=== PATIENT | male | born 1970 ===

== ENCOUNTER 2017-01-13 07:01 | Emergency (ER) | payer SELFPAY ==
[2017-01-13 07:24] VITALS: TEMP 98.8
--- NOTE | 2017-01-13 07:35 | ED PDOC ---
HPI: Chest Pain Time Seen by Provider: 01/13/17 07:05 Chief Complaint (Nursing): Chest Pain History Per: Patient History/Exam Limitations: no limitations Onset/Duration Of Symptoms: Hrs Current Symptoms Are (Timing): Still Present Severity: Moderate Additional Complaint(s): 46-year-old male, denies significant PMHx, presents to the emergency department with complaints of chest pain. Patient states he has been experiencing generalized chest pain since 04:30 this morning. Pain is non-radiating, worse with deep inspiration and associated with shortness of breath. He notes a similar episode recently, that resolved spontaneously on its own. Patient denies fevers, cough, nausea/vomiting, dizziness, recent travel, back pain, swelling/pain in extremities, numbness/weakness, symptoms, or any other associated symptoms. No other complaints at this time. Of note, he admits to drinking "a six pack and a few shots" daily; patients last drink was yesterday. Past Medical History Reviewed: Historical Data, Nursing Documentation, Vital Signs Vital Signs: Last Vital Signs Temp 98.8 F 01/13/17 07:19 Pulse 71 01/13/17 10:01 Resp 16 01/13/17 10:01 BP 134/72 01/13/17 10:01 Pulse Ox 99 01/13/17 11:59 - Family History Family History: States: Unknown Family Hx - Home Medications Home Medications: Ambulatory Orders Medication Instructions Recorded Non-Formulary 1 ea .ROUTE Q6 #1 ea 01/13/17 - Allergies Allergies/Adverse Reactions: Allergies Allergy/AdvReac Type Severity Reaction Status Date / Time No Known Allergies Allergy Verified 01/13/17 07:19 Review of Systems ROS Statement: Except As Marked, All Systems Reviewed And Found Negative Constitutional: Negative for: Fever, Chills Cardiovascular: Positive for: Chest Pain. Negative for: Palpitations, Orthopnea Respiratory: Positive for: Shortness of Breath, Pleuritic Pain. Negative for: Cough Gastrointestinal: Negative for: Nausea, Vomiting Musculoskeletal: Negative for: Back Pain, Leg Pain Skin: Negative for: Rash Neurological: Negative for: Weakness, Numbness, Headache, Dizziness Physical Exam - Reviewed Nursing Documentation Reviewed: Yes Vital Signs Reviewed: Yes - Physical Exam Appears: Positive for: Non-toxic, No Acute Distress Head Exam: Positive for: ATRAUMATIC, NORMOCEPHALIC Skin: Positive for: Warm, Dry. Negative for: Rash Eye Exam: Positive for: Normal appearance Neck: Positive for: Painless ROM Cardiovascular/Chest: Positive for: Regular Rate, Rhythm Respiratory: Positive for: Normal Breath Sounds. Negative for: Accessory Muscle Use Gastrointestinal/Abdominal: Positive for: Soft. Negative for: Tenderness Extremity: Positive for: Normal ROM Neurologic/Psych: Positive for: Alert, Oriented - Laboratory Results Result Diagrams: 01/13/17 07:45 01/13/17 07:45 - ECG O2 Sat by Pulse Oximetry: 99 Medical Decision Making Medical Decision Making: Impression: Chest Pain Plan: * EKG * EtOH Serum, CMP, UDS * CBC * Chest X-Ray * Aspirin * Reassess and Disposition EKG Viewed, Ordered and Interpreted by ED Physician Rate: 95bpm Rhythm NSR Interpret No acute ST/T wave changes 09:24 Chest X-Ray: No Pneumothorax. No infiltrates/effusion. No cardiomegaly. Scribe Attestation: Documented by Grzegorz Paz acting as a scribe for Yobani Sykes MD. Provider Attestation: All medical record entries made by the Scribe were at my direction and personally dictated by me. I have reviewed the chart and agree that the record accurately reflects my personal performance of the history, physical exam, medical decision making, and the department course for this patient. I have also personally directed, reviewed, and agree with the discharge instructions and disposition. Disposition - Clinical Impression Clinical Impression: Chest pain - Patient ED Disposition Is Patient to be Admitted: No - Disposition Referrals: [facility] [Outside] Disposition: Routine/Home Disposition Time: 11:57 Condition: FAIR Prescriptions: Non-Formulary 1 ea .ROUTE Q6 #1 ea Instructions: Chest Pain (ED)
[2017-01-13 07:58] LABS: BASO # 0.1 K/uL (0.0-0.2); BASO % 2.6 % (0.0-2.0); EOS # 0.3 K/uL (0.0-0.7); EOS % 7.4 % (0.0-4.0); HEMATOCRIT 45.6 % (35.0-51.0); LYMPH # 1.6 K/uL (1.0-4.3); MEAN CELL VOLUME 92.3 fl (80.0-94.0); MEAN CORPUSCULAR HEMOGLOBIN 31.2 pg (27.0-31.0); MEAN CORPUSCULAR HGB CONC 33.8 g/dL (33.0-37.0); MEAN PLATELET VOLUME 8.8 fl (7.2-11.7); MONO # 0.4 K/uL (0.0-0.8); MONO % 10.6 % (0.0-10.0); NEUT # 1.7 K/uL (1.8-7.0); NEUT % 40.4 % (50.0-75.0); NRBC % 0.1 % (0.0-0.0); RED CELL DISTRIBUTION WIDTH 12.8 % (11.5-14.5); WHITE BLOOD COUNT 4.2 K/uL (4.8-10.8)
[2017-01-13 08:35] LABS: ALB/GLOB RATIO 1.2 (1.0-2.1); ALCOHOL SERUM < 10 mg/dl (0-10); ALKALINE PHOSPHATASE 82 U/L (38-126); ALT/SGPT 50 U/L (21-72); AST/SGOT 37 U/L (17-59); BILIRUBIN,TOTAL 0.6 mg/dl (0.2-1.3); BLOOD UREA NITROGEN 20 mg/dl (9-20); CALCIUM 9.5 mg/dL (8.4-10.2); CARBON DIOXIDE 23 mmol/L (22-30); CHLORIDE 106 mmol/L (98-107); GFR AFRICAN-AMERICAN > 60; GLUCOSE,RANDOM 132 mg/dL (75-110); POTASSIUM 4.1 MMOL/L (3.6-5.0); SODIUM 147 mmol/l (132-148); TOTAL PROTEIN 8.6 G/DL (6.3-8.2)
--- NOTE | 2017-01-13 09:26 | RAD ---
HISTORY: chest pain COMPARISON: No prior. TECHNIQUE: Chest PA and lateral FINDINGS: LUNGS: The lungs are well inflated. There is bibasilar atelectasis. PLEURA: No significant pleural effusion identified. No pneumothorax apparent. CARDIOVASCULAR: Normal. OSSEOUS STRUCTURES: No significant abnormalities. VISUALIZED UPPER ABDOMEN: Normal. OTHER FINDINGS: None. IMPRESSION: No active pulmonary disease.
[2017-01-13 10:02] VITALS: BP 134/72; PULSE 71
[2017-01-13 12:52] VITALS: RESP 18; O2SAT 98
--- NOTE | 2017-01-14 14:00 | CARD ---
APPROVED REPORT EKG Measurement Heart [id number] <Conclusion> Normal sinus rhythm Cannot rule out Anterior infarct, age undetermined Abnormal ECG
== END 2017-01-13 12:47 | disposition home or self-care (01) ==
LOC: H.ER 07:01
DX: R07.9 Chest pain, unspecified (principal); R06.02 Shortness of breath
CPT/HCPCS: 71020; 80053; 84484; 85025; 93005; 99283; G0480

== ENCOUNTER 2018-01-09 04:40 | Emergency (ER) | payer OTHER ==
[2018-01-09 04:40] VITALS: BMI 29.2
[2018-01-09 05:02] VITALS: BP 204/112; PULSE 100; RESP 20; TEMP 97.7; O2SAT 100
[2018-01-09] MEDS ORDERED: Multivitamin (MVI) 10 ML, Folic Acid 1 MG, Thiamine 100 MG in Dextrose 5%/0.45% NS 1,00... IV ONE (05:49)
[2018-01-09 06:10] LABS: BASO % 1.1 % (0.0-2.0); EOS # 0.1 K/uL (0.0-0.7); EOS % 3.8 % (0.0-4.0); HEMOGLOBIN 15.9 g/dL (12.0-18.0); LYMPH # 0.7 K/uL (1.0-4.3); LYMPH % 18.8 % (20.0-40.0); MEAN CELL VOLUME 94.3 fl (80.0-94.0); MEAN CORPUSCULAR HEMOGLOBIN 32.5 pg (27.0-31.0); MEAN CORPUSCULAR HGB CONC 34.4 g/dL (33.0-37.0); MONO # 0.5 K/uL (0.0-0.8); MONO % 11.6 % (0.0-10.0); NEUT # 2.5 K/uL (1.8-7.0); NEUT % 64.7 % (50.0-75.0); NRBC % 0.1 % (0.0-0.0); RBC 4.9 Mil/uL (4.40-5.90); RED CELL DISTRIBUTION WIDTH 13.6 % (11.5-14.5); WHITE BLOOD COUNT 3.9 K/uL (4.8-10.8)
--- NOTE | 2018-01-09 07:03 | ED PDOC ---
HPI: Psych/Substance Abuse Time Seen by Provider: 01/09/18 05:11 Chief Complaint (Nursing): Chest Pain Chief Complaint (Provider): Alcohol Withdrawal History Per: Patient History/Exam Limitations: no limitations Current Symptoms Are (Timing): Still Present Additional Complaint(s): 47 year old male presents to ED with complaints of shakiness and has a history of alcohol dependence. Patient states that he drinks a daily minimum of 6 beers and multiple shots of hard liquor. States that last drink was yesterday afternoon. (+) nausea and mild SOB. (-) auditory/visual hallucinations, vomiting , or diarrhea. Patient notes he woke up this morning tremulous, anxious, and uncomfortable. PCP: [facility] Past Medical History Reviewed: Historical Data, Nursing Documentation, Vital Signs Vital Signs: Last Vital Signs Temp 97.7 F 01/09/18 04:59 Pulse 100 H 01/09/18 04:59 Resp 20 01/09/18 04:59 BP 204/112 H 01/09/18 04:59 Pulse Ox 100 01/09/18 04:59 - Medical History Other PMH: alcohol dependence - Family History Family History: States: Unknown Family Hx - Social History Current smoker - smoking cessation education provided: Yes Alcohol: Social - Home Medications Home Medications: Ambulatory Orders Medication Instructions Recorded Non-Formulary 1 ea .ROUTE Q6 #1 ea 01/13/17 - Allergies Allergies/Adverse Reactions: Allergies Allergy/AdvReac Type Severity Reaction Status Date / Time No Known Allergies Allergy Verified 01/09/18 05:02 Review of Systems ROS Statement: Except As Marked, All Systems Reviewed And Found Negative Constitutional: Positive for: Other (Shakiness) Respiratory: Positive for: Shortness of Breath (mild) Gastrointestinal: Positive for: Nausea. Negative for: Vomiting, Diarrhea Psych: Negative for: Psychosis ((-) auditory/visual hallucinations) Physical Exam - Reviewed Nursing Documentation Reviewed: Yes Vital Signs Reviewed: Yes - Physical Exam Appears: Positive for: Non-toxic, No Acute Distress (tremulous) Skin: Positive for: Normal Color, Warm, Dry Eye Exam: Positive for: Normal appearance Cardiovascular/Chest: Positive for: Regular Rate, Rhythm, Tachycardia Respiratory: Positive for: Normal Breath Sounds. Negative for: Respiratory Distress Gastrointestinal/Abdominal: Positive for: Soft. Negative for: Tenderness Extremity: Positive for: Normal ROM. Negative for: Deformity Neurologic/Psych: Positive for: Alert, Oriented, Mood/Affect (anxious affect). Negative for: Motor/Sensory Deficits - Laboratory Results Result Diagrams: 01/09/18 06:00 01/09/18 06:00 - ECG O2 Sat by Pulse Oximetry: 100 (RA) Pulse Ox Interpretation: Normal Medical Decision Making Medical Decision Makin Initial impression: alcohol withdrawal syndrome Initial plan: * EKG * EtOH serum * Labs * UDrug Screen * UDip * Dextrose IV * Ativan 2mg IVP * UA * Re-eval 0700 Patient will be signed out to Dr. Benjamin pending ED work up. Scribe Attestation: Documented by Fely Storey acting as a scribe Alfredito Call MD. Scribe Attestation: All medical record entries made by the Scribe were at my direction and personally dictated by me. I have reviewed the chart and agree that the record accurately reflects my personal performance of the history, physical exam, medical decision making, and the department course for this patient. I have also personally directed, reviewed, and agree with the discharge instructions and disposition. Disposition - Clinical Impression Clinical Impression: Alcohol withdrawal - Patient ED Disposition Is Patient to be Admitted: Transfer of Care - Disposition Referrals: [facility] [Outside] Disposition: Routine/Home Disposition Time: 07:00 Condition: FAIR Instructions: Alcohol Abuse and Alcoholism (DC) Forms: Wendie Fisher ([place]), [facility] ED School/Work Excuse Patient Signed Over To: Cassy Benjamin
[2018-01-09 07:36] LABS: ALB/GLOB RATIO 1.1 (1.0-2.1); ALBUMIN 4.5 g/dL (3.5-5.0); ALT/SGPT 139 U/L (21-72); AST/SGOT 92 U/L (17-59); BLOOD UREA NITROGEN 13 mg/dl (9-20); CALCIUM 9.8 mg/dL (8.4-10.2); GFR AFRICAN-AMERICAN > 60; GFR NON-AFRICAN AMERICAN > 60
--- NOTE | 2018-01-09 07:52 | ED PDOC ---
- Laboratory Results Result Diagrams: 01/09/18 06:00 01/09/18 06:00 - ECG O2 Sat by Pulse Oximetry: 100 (RA) Medical Decision Making Medical Decision Makinam - received patient from Dr. Call. Patient with EtOH abuse history. Given Ativan for shakiness. need re-eval. 9.30A - PATIENT IS AWAKE AND ALERT. NO COMPLAINTS. NOT SHAKY. FEELS OKAY. HE DRINKS AFTER WORK AND WHEN HE IS OFF. HIS LAST DRINK WAS 3P YESTERDAY. Disposition Doctor Will See Patient In The: Office Counseled Patient/Family Regarding: Diagnosis, Need For Followup - Clinical Impression Clinical Impression: Alcohol abuse - POA Present On Arrival: None - Disposition Referrals: [facility] [Outside] Disposition: Routine/Home Disposition Time: 09:42 Condition: STABLE Instructions: Alcohol Abuse and Alcoholism (DC) Forms: Wendie Fisher ([place]), [facility] ED School/Work Excuse
--- NOTE | 2018-01-09 09:55 | CARD ---
APPROVED REPORT EKG Measurement Heart [id number] <Conclusion> Normal sinus rhythm Normal ECG
== END 2018-01-09 10:49 | disposition home or self-care (01) ==
LOC: H.ER 04:40
DX: F10.239 Alcohol dependence with withdrawal, unspecified (principal); F17.200 Nicotine dependence, unspecified, uncomplicated
CPT/HCPCS: 80053; 80320; 85025; 93005; 96374; 99283; J2060; J3411; J7042